=== PATIENT | male | born 1965 | race Caucasian/White ===

== ENCOUNTER 2017-02-13 05:24 | Day surgery (SDC) | payer BC ==
[2017-02-12 11:46] VITALS: BMI 21.4
[~2017-02-13] VITALS: Ht 167.6 cm; Wt 59.4 kg
[2017-02-13] VITALS (12 sets, daily range): BP systolic 81–109; BP diastolic 54–71; PULSE 54–77; RESP 10–22; Ht 167.6 cm; Wt 59.4 kg
--- NOTE | 2017-02-13 03:57 | PREOPHP ---
DATE OF ADMISSION: 02/13/2017 HISTORY OF PRESENT ILLNESS: This 51-year-old patient is admitted for elective cataract surgery of the right eye. The patient states that his vision deteriorated over the past 8 months after undergoing intravitreal injection with Avastin for a diabetic retinopathy in the right eye. The patient has also previously had panretinal photocoagulation in the left eye. PAST MEDICAL HISTORY: The patient's systemic history is positive for a 10 year period of insulin-dependent diabetes mellitus and some heart disease. MEDICATIONS: Includes Humalog, Levemir, metformin, Januvia, carvedilol and aspirin. The aspirin was discontinued 1 week prior to surgery. ALLERGIES: LANTUS. PHYSICAL EXAMINATION: The visual acuity with best correction, is 20/80 in the right eye and 20/20 in the left eye. Slit lamp examination reveals a posterior subcapsular cataract in the right eye. Applanation tonometry is 21 mmHg in both eyes. Examination of the retina reveals peripheral pigmented scars in the left eye, indicative of the panretinal photocoagulation. DIAGNOSIS: Posterior subcapsular cataract, right eye. PLAN: Cataract extraction with lens implant, right eye. The risks and alternatives of the surgery have been discussed with the patient and patient has opted to proceed with surgery in hopes of having improvement of visual acuity leading to greater ability to perform activities of daily living. Dictated By: Michael Thomas MD /reji/cole /Document#: [id number]
[2017-02-13] MEDS ORDERED: METF1000 PO (07:17)
[2017-02-13] MEDS ORDERED: LISI2.5T59 PO (07:19)
[2017-02-13] MEDS ORDERED: LEVEM SC (07:19)
[2017-02-13] MEDS ORDERED: GABA300C16 PO (07:20)
[2017-02-13] MEDS ORDERED: CARV6.2579 PO (07:20)
[2017-02-13] MEDS ORDERED: ATOR40TA68 PO (07:20)
[2017-02-13] MEDS ORDERED: SITA100T8 PO (07:21)
[2017-02-13] MEDS ORDERED: TROPICAMIDE 1% 2 ML OPH OPER SCH (08:00)
[2017-02-13] MEDS ORDERED: CIPROFLOXACIN 0.3% 2.5 ML OPH OPER SCH (08:00)
[2017-02-13] MEDS ORDERED: DICLOFENAC 0.1% 2.5 ML OPH OPER SCH (08:00)
[2017-02-13] MEDS ORDERED: CYCLOPENTOLATE/PHENYLEPH 2 ML OPH OPER SCH (08:00)
[2017-02-13] MEDS ORDERED: LIDOCAINE 4% (MPF) 5 ML INJ ONE (08:18)
[2017-02-13] MEDS ORDERED: CARBACHOL 0.01% 1.5 ML OPH INJ ONE (08:18)
[2017-02-13] MEDS ORDERED: GENTAMICIN 80 MG INJ ONE (08:18)
[2017-02-13] MEDS ORDERED: CEFAZOLIN 1 GM INJ ONE (08:18)
[2017-02-13] MEDS ORDERED: DEXAMETHASONE 4 MG/ML 1 ML INJ ONE (08:19)
[2017-02-13] MEDS ORDERED: HYALURONATE/CHONDROITIN 1ML OPH INJ ONE (08:19)
[2017-02-13] MEDS ORDERED: EPINEPHrine 1 MG INJ ONE (08:19)
[2017-02-13] MEDS ORDERED: DEXAMETHASONE 4 MG/ML 1 ML INJ INJ ONE (08:20)
[2017-02-13] MEDS ORDERED: HYALURONATE/CHONDROITIN 1ML OPH INJ IO ONE (08:20)
[2017-02-13] MEDS ORDERED: CEFAZOLIN 1 GM INJ INJ ONE (08:20)
[2017-02-13] MEDS ORDERED: CARBACHOL 0.01% 1.5 ML OPH INJ IO ONE (08:25)
[2017-02-13] MEDS ORDERED: PROPOFOL 20 ML ONE (08:40)
[2017-02-13] MEDS ORDERED: LIDOCAINE 2% (SDV) 5 ML INJ ONE (08:40)
[2017-02-13] MEDS ORDERED: ONDANSETRON 4 MG INJ IV PRN (09:00)
[2017-02-13] MEDS ORDERED: METOCLOPRAMIDE 10 MG INJ IV PRN (09:00)
[2017-02-13] MEDS ORDERED: DIPHENHYDRAMINE 50 MG INJ IV PRN (09:00)
[2017-02-13] MEDS ORDERED: MEPERIDINE 25 MG INJ IV PRN (09:00)
[2017-02-13] MEDS ORDERED: FENTAnyl 50 MCG/ML VIAL IV PRN (09:00)
[2017-02-13] MEDS ORDERED: LACTATED RINGER'S 500 ML IV ONE (09:30)
--- NOTE | 2017-02-21 06:45 | OPR ---
DATE OF OPERATION: 02/13/2017 PREOPERATIVE DIAGNOSIS: Cataract, right eye. POSTOPERATIVE DIAGNOSIS: Cataract, right eye. OPERATION PERFORMED: Cataract extraction with lens implant, right eye. SURGEON: Michael Thomas MD LOCATION AND MEASUREMENT TECHNICIAN: ANESTHESIA: Local standby. ANESTHESIOLOGIST: OPERATION: Phacoemulsification with posterior chamber intraocular lens implant, right eye. PROCEDURE: The patient was brought to the operating room and placed on the table with an IV in place and the patient attached to an director public. Oxygen was given via face mask. After some intravenous sedation was administered, local anesthesia was given using Xylocaine 2% with epinephrine, mixed with Marcaine 0.5%. This was given in a lid block and retrobulbar injection. The patient was then prepped and draped in the usual sterile manner. A wire lid speculum was inserted between the lids of the right eye. A Superblade was used to enter the anterior chamber at the corneoscleral limbus at the 10:30 o'clock position. A separate incision was made using a 3.0-mm keratome which entered the corneoscleral junction at the 12 o'clock position. Through this 3- mm opening, an irrigating cystotome was introduced into the anterior chamber. The chamber was filled with Viscoat and an anterior capsulotomy was performed. Balanced salt solution was then used for hydrodissection of the lens. A phacoemulsification handpiece was then brought into the field and introduced into the anterior chamber. The lens nucleus was emulsified using a deep groove and cracking the nucleus into quadrants. Following this, each quadrant was aspirated and emulsified at the pupillary margin. After this was completed, the irrigation/aspiration handpiece was brought to the field, introduced into the posterior chamber, and the lens cortical material was removed. When this was completed, additional Viscoat was injected into the anterior and posterior chambers. The 3-mm opening had its internal lips enlarged, and then the posterior chamber intraocular lens measuring 18.5 diopters posterior chamger intraocular lens (Bausch and Lomb model LI61AO) was then injected into the posterior chamber using the lens injector system. After the leading haptic was introduced into the capsular bag and the lens optic was present in the center of the eye, the injector was removed and the trailing haptic was grasped with non-toothed forceps and introduced into the capsular fold superiorly. A Sinskey hook was then used to rotate the intraocular lens so that the lips were oriented in the horizontal meridian. One 10-0 nylon suture was placed across the wound. Prior to tying, the irrigation/aspiration handpiece was reintroduced into the anterior chamber to remove the Viscoat. Miochol was instilled to constrict the pupil, and then the 10-0 nylon suture was tied. The ends were cut short and then the knot was buried. Then, 0.5 mL of dexamethasone and 0.5 mL of Ancef were injected into the sub-Tenon space in the inferior fornix. Ciloxan drops were then placed on the surface of the eye. The speculum was removed and a patch was applied. The patient then left the operating room in satisfactory condition. Dictated By: Michael Thomas MD /reji/ilya /Document#: [id number]
== END 2017-02-13 10:41 | disposition home or self-care (01) ==
LOC: SDS 05:24
PROVIDERS: ATTEND Ophthalmology
DX: H26.9 Unspecified cataract (principal); E11.9 Type 2 diabetes mellitus without complications; Z79.4 Long term (current) use of insulin; M19.90 Unspecified osteoarthritis, unspecified site; I10 Essential (primary) hypertension; Z88.8 Allergy status to other drugs, medicaments and biological substances
CPT/HCPCS: 66984; 82962; J0171; J0690; J1100; J1580; J3010; V2632; Z7512; Z7610